=== PATIENT | male | born 1960 | race Caucasian/White ===

== ENCOUNTER → 2019-05-06 | Outpatient (CLI) | payer BC ==
--- NOTE | 2019-05-06 12:41 | Diagnostic Imaging Report ---
INDICATION: Fall. Trauma to the hand. COMPARISON: None. FINDINGS: Two views of the left hand were obtained and show no fractures, dislocations, or other acute bony abnormalities. Joint spaces are well maintained throughout. The soft tissues appear unremarkable. No radiopaque foreign bodies are identified. IMPRESSION: Unremarkable radiographic exam of the left hand. Dictated by: Dictated on workstation # [id number]
== END ==
LOC: RAD FS 12:26
PROVIDERS: ATTEND Family Medicine
DX: S69.92XA Unspecified injury of left wrist, hand and finger(s), initial encounter (principal); W19.XXXA Unspecified fall, initial encounter
CPT/HCPCS: 73120

== ENCOUNTER 2019-09-04 09:16 | Emergency (ER) | payer BC ==
[~2019-09-04] VITALS: Ht 175 cm; Wt 90.0 kg
--- OUTSIDE RECORDS SUMMARY | 2019-09-04 09:25 | XMS REPORT | Continuity of Care Document ---
Demographics Preferred Language Unknown Marital Status Unknown Judaism Affiliation Unknown Race Unknown Ethnic Group Unknown Author Organization Unknown Address Unknown Phone Unavailable Allergies Active Description Code Type Severity Reaction Onset Reported/Identified Relationship to Patient Clinical Status Yes No Known Drug Allergies [id number] N/A N/A Yes No Known Environmental Allergies [id number] N/A N/A Yes No Known Food Allergies [id number] N/A N/A Medications There is no data. Problems Date Dx Coded Attending Type Code Diagnosis Diagnosed By 12/24/2017 P [id number] Enc ounter for preprocedural cardiovascular examination 12/24/2017 S [id number] Enc ounter for preprocedural laboratory examination 12/24/2017 S Z0183 [place] unter for blood typing 05/22/2019 SILKE SARAVIA MD Ot S69.92XA UNSP INJURY OF LEFT WRIST, HAND AND FING 05/22/2019 SILKE SARAVIA MD Ot W19.XXXA UNSPECIFIED FALL, INITIAL ENCOUNTER 09/04/2019 SILKE SARAVIA MD Ot S69.92XA UNSP INJURY OF LEFT WRIST, HAND AND FING 09/04/2019 SILKE SARAVIA MD Ot W19.XXXA UNSPECIFIED FALL, INITIAL ENCOUNTER Procedures There is no data. Results There is no data. Encounters ACCT No. Visit Date/Time Discharge Status Pt. Type Provider Facility Loc./Unit Complaint [id number] 01/08/2018 13:08:26 Document Registration [id number] 12/24/2017 10:31:00 Document Registration [id number] 07/05/2018 12:10:00 07/05/2018 23:59: 59 CLS Outpatient [facility] [id number] 05/06/2019 12:26:00 020 23:59:59 CLS Outpatient SILKE SARAVIA MD [facility] RAD FS S69.90XA [id number] 09/04/2019 09:19:[address] Emergency MOSER TAYLA BAEZ [facility] ER FS RT RIB INJ [id number] 02/22/2018 17:09:23 02/22/2018 23:59: 59 CLS Outpatient Betzaida Aguilar
[2019-09-04] MEDS ORDERED: fentaNYL INJECTION 100 MCG/2 ML AMP IVP STA (09:38)
--- NOTE | 2019-09-04 09:38 | ED General ---
General Stated Complaint: RT RIB INJ Source of Information: Patient Exam Limitations: No Limitations History of Present Illness Date Seen by Provider: Sep 04, 2019 Time Seen by Provider: 09:38 Initial Comments 59-year-old male presents with injury to his right upper abdomen and right lower ribs. 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 Patient reports a calf jumped up and Knocked Him down and Then Landed with Both Back Legs on him. Patient reports calf Weighted around 600 pounds. Patient has a large contusion and swelling to his right upper abdomen. He has pain in his right lower ribs that radiates to his back. He has no mid back pain. He states it hurts to take a breath because of the pain. Patient denies any other injuries. Denies any nausea or vomiting. Allergies and Home Medications Allergies Coded Allergies: No Known Drug Allergies (Unverified , 09/04/19) Patient Home Medication List Home Medication List Reviewed: Yes Review of Systems Review of Systems Constitutional: No chills, No fever EENTM: No throat pain Respiratory: see HPI; No cough; short of breath Cardiovascular: No chest pain, No palpitations Gastrointestinal: abdominal pain; No nausea, No vomiting Musculoskeletal: see HPI Skin: see HPI Psychiatric/Neurological: No Symptoms Reported Past Ojkjhmq-Goliji-Urfyzo Hx Past Med/Social Hx: Reviewed Nursing Past Med/Soc Hx Patient Social History Recent Foreign Travel: No Contact w/Someone Who Travel: No Physical Exam Vital Signs Vital Signs - First Documented 09/04/19 09:49 Temp 36.9 Pulse 73 Resp 20 B/P (MAP) 125/78 (94) Pulse Ox 100 O2 Delivery Room Air Capillary Refill : Height, Weight, BMI Height: '" Weight: lbs. oz. 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 Norm as Tested Skin: Normal Color, Warm/Dry Progress/Results/Core Measures Suspected Sepsis SIRS Temperature: Pulse: Respiratory Rate: Laboratory Tests 09/04/19 09:54: White Blood Count 15.9H Blood Pressure / Mean: Laboratory Tests 09/04/19 09:54: Creatinine 0.92, Platelet Count 325, Total Bilirubin 0.8 Results/Orders Lab Results Laboratory Tests Test 09/04/19 09:54 09/04/19 10:00 Range/Units White Blood Count 15.9 H 4.3-11.0 10^3/uL Red Blood Count 4.66 4.35-5.85 10^6/uL Hemoglobin 15.0 13.3-17.7 G/DL Hematocrit 44 40-54 % Mean Corpuscular Volume 95 80-99 FL Mean Corpuscular Hemoglobin 32 25-34 PG Mean Corpuscular Hemoglobin Concent 34 32-36 G/DL Red Cell Distribution Width 13.2 10.0-14.5 % Platelet Count 325 130-400 10^3/uL Mean Platelet Volume 8.9 7.4-10.4 FL Sodium Level 138 135-145 MMOL/L Potassium Level 4.1 3.6-5.0 MMOL/L Chloride Level 102 98-107 MMOL/L Carbon Dioxide Level 21 21-32 MMOL/L Anion Gap 15 H 5-14 MMOL/L Blood Urea Nitrogen 14 7-18 MG/DL Creatinine 0.92 0.60-1.30 MG/DL Estimat Glomerular Filtration Rate > 60 BUN/Creatinine Ratio 15 Glucose Level 168 H 70-105 MG/DL Calcium Level 9.9 8.5-10.1 MG/DL Corrected Calcium 8.5-10.1 MG/DL Total Bilirubin 0.8 0.1-1.0 MG/DL Aspartate Amino Transf (AST/SGOT) 33 5-34 U/L Alanine Aminotransferase (ALT/SGPT) 30 0-55 U/L Alkaline Phosphatase 110 40-136 U/L Total Protein 7.6 6.4-8.2 GM/DL Albumin 4.6 H 3.2-4.5 GM/DL Urine Color YELLOW Urine Clarity CLEAR Urine pH 5.0 5-9 Urine Specific [place] >1.030 1.016-1.022 Urine Protein NEGATIVE NEGATIVE Urine Glucose (UA) NEGATIVE NEGATIVE Urine Ketones NEGATIVE NEGATIVE Urine Nitrite NEGATIVE NEGATIVE Urine Bilirubin NEGATIVE NEGATIVE Urine Urobilinogen 0.2 < = 1.0 MG/DL Urine Leukocyte Esterase NEGATIVE NEGATIVE Urine RBC (Auto) NEGATIVE NEGATIVE Urine RBC RARE /HPF Urine WBC NONE /HPF Urine Crystals NONE /LPF Urine Bacteria TRACE /HPF Urine Casts NONE /LPF Urine Mucus SMALL H /LPF Urine Culture Indicated NO My Orders Orders - TAYLA MOSER DO Cbc No Diff (09/04/19 09:35) Comprehensive Metabolic Panel (09/04/19 09:35) Ua Culture If Indicated (09/04/19 09:35) Ribs/Unilateral With Chest (09/04/19 09:35) Ct Abdomen/Pelvis W (09/04/19 09:35) Fentanyl Injection (Sublimaze Injection (09/04/19 09:38) Iohexol Injection (Omnipaque 350 Mg/Ml 1 (09/04/19 10:30) Received Contrast (Hold Metformin- Contr (09/04/19 10:30) Sodium Chloride Flush (Catheter Flush Sy (09/04/19 10:30) Ns (Ivpb) (Sodium Chloride 0.9% Ivpb Bag (09/04/19 10:30) Medications Given in ED Current Medications Medications Dose Ordered Sig/Jaguar Route Start Time Stop Time Status Last Admin Dose Admin Iohexol 100 ml ONCE ONCE IV 09/04/19 10:30 09/04/19 10:31 DC 09/04/19 10:36 100 ML Sodium Chloride 10 ml NEEDED PRN IV 09/04/19 10:30 09/04/19 10:36 10 ML Sodium Chloride 100 ml ONCE ONCE IV 09/04/19 10:30 09/04/19 10:31 DC 09/04/19 10:36 100 ML Vital Signs/I&O 09/04/19 09:49 Temp 36.9 Pulse 73 Resp 20 B/P (MAP) 125/78 (94) Pulse Ox 100 O2 Delivery Room Air Capillary Refill : Diagnostic Imaging Diagonstic Imaging: Xray, CT Comments [place], [place] NAME: LEIGHANN GONSALEZ [facility] REC#: [id number] PT STATUS: REG ER : 1960 PHYSICIAN: TAYLA MOSER DO ADMIT DATE: 09/04/19/ER FS Draft Date of Exam:09/04/19 RIBS/UNILATERAL WITH CHEST INDICATION: Right rib pain, kicked by a calf. Time of Exam: 10:06 AM There are nondisplaced fractures involving the right anterior approximately 8th and 9th ribs. No parenchymal contusion, effusion or pneumothorax is detected. IMPRESSION: 1. Right 8th and 9th rib fractures. [facility]. [place], [place] NAME: LEIGHANN GONSALEZ [facility] REC#: [id number] PT STATUS: REG ER : 1960 PHYSICIAN: TAYLA MOSER DO ADMIT DATE: 09/04/19/ER FS Draft Date of Exam:09/04/19 CT ABDOMEN/PELVIS W PROCEDURE: CT abdomen and pelvis with contrast. TECHNIQUE: Multiple contiguous axial images were obtained through the abdomen and pelvis after administration of intravenous contrast. Auto Exposure Controls were utilized during the CT exam to meet ALARA standards for radiation dose reduction. INDICATION: Trauma. Kicked by calf on the right chest wall. COMPARISON: CT abdomen and pelvis with IV contrast 05/24/2007. FINDINGS: Mild atelectasis in the lung bases. Mildly angulated acute appearing right lateral 8th through 11th rib fractures. No pleural effusion or pneumothorax in the mniac-hn-fcha. Simple small cysts in the liver. No evidence of a liver laceration. Appendectomy. The gallbladder, pancreas, spleen, adrenals, kidneys, collecting systems and decompressed bladder are negative. Moderate colonic diverticulosis without evidence of active diverticulitis. No evidence of bowel obstruction or injury. No free intraperitoneal air or fluid. No lymphadenopathy. No evidence of bowel obstruction. IMPRESSION: 1. Mildly angulated acute appearing right lateral 8th through 11th rib fractures. 2. No evidence of solid organ injury in the abdomen or pelvis. No pleural effusion or pneumothorax in the field-of-vi Departure Impression Primary Impression: Multiple rib fractures involving four or more ribs Additional Impression: Blunt abdominal trauma Qualified Codes: S39.91XA - Unspecified injury of abdomen, initial encounter Disposition: 01 HOME, SELF-CARE Condition: Stable Departure-Patient Inst. Referrals: SILKE SARAVIA MD (PCP/Family) Primary Care Physician Patient Instructions: Blunt Abdominal Trauma (DC), Blunt Chest Trauma, Rib Fractures in Adults Add. Discharge Instructions: Follow-up with your primary care provider as needed TAYLA MOSER DO Sep 04, 2019 09:38
[2019-09-04 10:01] LABS: WHITE BLOOD COUNT 15.9 10^3/uL (4.3-11.0)
[2019-09-04 10:02] LABS: MEAN PLATELET VOLUME 8.9 FL (7.4-10.4); RED CELL DISTRIBUTION WIDTH 13.2 % (10.0-14.5)
[2019-09-04 10:21] LABS: ALANINE AMINOTRANSFERASE 30 U/L (0-55); ALKALINE PHOSPHATASE 110 U/L (40-136); BILIRUBIN,TOTAL 0.8 MG/DL (0.1-1.0); BUN/CREATININE RATIO 15; CALCIUM 9.9 MG/DL (8.5-10.1); CARBON DIOXIDE 21 MMOL/L (21-32); CHLORIDE 102 MMOL/L (98-107); CREATININE SERUM 0.92 MG/DL (0.60-1.30); GFR ESTIMATED > 60; GLUCOSE 168 MG/DL (70-105); POTASSIUM 4.1 MMOL/L (3.6-5.0); SODIUM 138 MMOL/L (135-145)
[2019-09-04 10:22] LABS: ALBUMIN 4.6 GM/DL (3.2-4.5); TOTAL PROTEIN 7.6 GM/DL (6.4-8.2)
[2019-09-04 10:24] LABS: BILIRUBIN,URINE NEGATIVE (NEGATIVE); CLARITY,URINE CLEAR; COLOR,URINE YELLOW; GLUCOSE, URINE (UA) NEGATIVE (NEGATIVE); KETONES,URINE NEGATIVE (NEGATIVE); LEUKOCYTE ESTERASE ,URINE NEGATIVE (NEGATIVE); NITRITE,URINE NEGATIVE (NEGATIVE); PROTEIN,URINE NEGATIVE (NEGATIVE); RBC,URINE RARE /HPF
[2019-09-04 10:25] LABS: BACTERIA,URINE TRACE /HPF
--- NOTE | 2019-09-04 10:26 | Diagnostic Imaging Report ---
INDICATION: Right rib pain, kicked by a calf. Time of Exam: 10:06 AM There are nondisplaced fractures involving the right anterior approximately 8th and 9th ribs. No parenchymal contusion, effusion or pneumothorax is detected. IMPRESSION: 1. Right 8th and 9th rib fractures. Dictated by: Dictated on workstation # [id number]
[2019-09-04] MEDS ORDERED: CATHETER FLUSH 10 ML SYR IV PRN (10:30)
[2019-09-04] MEDS ORDERED: HOLD METFORMIN - RECEIVED CONTRAST 20 ML VIAL IV SCH (10:30)
[2019-09-04] MEDS ORDERED: NS 100 ML (IVPB) BAG IV ONE (10:30)
[2019-09-04] MEDS ORDERED: IOHEXOL 350 MG/ML 100 ML (OMNIPAQUE 350) VIAL IV ONE (10:30)
--- NOTE | 2019-09-04 11:02 | Diagnostic Imaging Report ---
PROCEDURE: CT abdomen and pelvis with contrast. TECHNIQUE: Multiple contiguous axial images were obtained through the abdomen and pelvis after administration of intravenous contrast. Auto Exposure Controls were utilized during the CT exam to meet ALARA standards for radiation dose reduction. INDICATION: Trauma. Kicked by calf on the right chest wall. COMPARISON: CT abdomen and pelvis with IV contrast 05/24/2007. FINDINGS: Mild atelectasis in the lung bases. Mildly angulated acute appearing right lateral 8th through 11th rib fractures. No pleural effusion or pneumothorax in the vqnzb-gk-hmtp. Simple small cysts in the liver. No evidence of a liver laceration. Appendectomy. The gallbladder, pancreas, spleen, adrenals, kidneys, collecting systems and decompressed bladder are negative. Moderate colonic diverticulosis without evidence of active diverticulitis. No evidence of bowel obstruction or injury. No free intraperitoneal air or fluid. No lymphadenopathy. No evidence of bowel obstruction. IMPRESSION: 1. Mildly angulated acute appearing right lateral 8th through 11th rib fractures. 2. No evidence of solid organ injury in the abdomen or pelvis. No pleural effusion or pneumothorax in the syqyb-dy-ashm. Dictated by: Dictated on workstation # [id number]
[2019-09-04] MEDS ORDERED: HYDR-83 PO (11:25)
[2019-09-04 11:32] VITALS: BP 122/76
== END 2019-09-04 11:30 | disposition home or self-care (01) ==
LOC: EDUNIT# 09:16 → ER FS 09:19
DX: S22.41XA Multiple fractures of ribs, right side, initial encounter for closed fracture (principal); W55.22XA Struck by cow, initial encounter
CPT/HCPCS: 36415; 71101; 74177; 80053; 81000; 85027; 96374